=== PATIENT | male | born 1960 | race Caucasian/White ===

== ENCOUNTER 2018-01-08 09:35 | Emergency (ER) | payer MEDICARE, BC ==
[~2018-01-08] VITALS: Ht 185.4 cm; Wt 127.0 kg
[2018-01-08 10:18] LABS: BASOPHILS ABSOLUTE AUTO 0.04 K/mm3 (0.00-0.23); BASOPHILS PERCENT AUTO 1 % (0-2); EOSINOPHILS ABSOLUTE AUTO 0.14 K/mm3 (0.00-0.68); EOSINOPHILS PERCENT AUTO 2 % (0-6); Hematocrit 42.5 % (37.0-53.0); Hemoglobin 14.3 g/dL (13.5-17.5); IMMATURE GRAN ABSOLUTE AUTO 0.03 K/mm3 (0.00-0.10); IMMATURE GRAN PERCENT AUTO 0 % (0-1); LYMPHOCYTES ABSOLUTE AUTO 2.64 K/mm3 (0.84-5.20); LYMPHOCYTES PERCENT AUTO 37 % (21-46); MONOCYTES ABSOLUTE AUTO 1.02 K/mm3 (0.16-1.47); MONOCYTES PERCENT AUTO 14 % (4-13); Mean Corpuscular HGB 31.6 pg (26.0-34.0); Mean Corpuscular HGB Conc 33.6 g/dL (31.5-36.5); Mean Corpuscular Volume 94 fL (80-100); Mean Platelet Volume 9.6 fL (9.1-12.4); NEUTROPHILS ABSOLUTE AUTO 3.23 K/mm3 (1.96-9.15); NEUTROPHILS PERCENT AUTO 45 % (41-73); Platelet Count 224 K/mm3 (150-400); RDW Coefficient Variation 12.6 % (11.7-14.2); RDW Standard Deviation 43.8 fL (35.1-46.3); Red Blood Cell Count 4.53 M/mm3 (4.30-5.90)
[2018-01-08] MEDS ORDERED: NUEDEXTA 20-101 EACH PO (10:18)
[2018-01-08] MEDS ORDERED: PRIM250 PO (10:18)
[2018-01-08] MEDS ORDERED: Cialis5 MG PO (10:18)
[2018-01-08] MEDS ORDERED: DOCU100 PO (10:19)
[2018-01-08] MEDS ORDERED: PROP80ER PO (10:20)
[2018-01-08] MEDS ORDERED: TAMS.4ER PO (10:20)
[2018-01-08] MEDS ORDERED: Pristiq100 MG PO (10:21)
[2018-01-08] MEDS ORDERED: ATORVASTATIN CA20 MG PO (10:21)
[2018-01-08] MEDS ORDERED: NEXIUM 24HR20 M3 PO (10:22)
[2018-01-08] MEDS ORDERED: ALBU3IS INH (10:23)
[2018-01-08] MEDS ORDERED: Depakote500 MG PO (10:23)
[2018-01-08 10:39] LABS: Alanine Aminotransfer (ALT/SGP 53 U/L (12-78); Albumin, Blood 3.3 g/dL (3.4-5.0); Albumin/Globulin Ratio 0.9 (0.8-1.8); Alk Phos 74 U/L (50-136); Anion Gap 6 mmol/L (6-16); Aspartate Aminotrans (AST/SGOT 54 U/L (12-37); Bilirubin, Total 0.3 mg/dL (0.1-1.0); Blood Urea Nitrogen 14 mg/dL (8-24); Bun/Creatinine Ratio 15.5 (12.0-20.0); CO2, Blood 27 mmol/L (21-32); Calcium, Blood 8.7 mg/dL (8.5-10.1); Chloride, Blood 101 mmol/L (98-108); Globulin, Blood 3.5 g/dL (2.2-4.0); Glomerular Filtration Rate >60 (60-); Glucose, Blood 105 mg/dL (70-99); Potassium, Blood 4.4 mmol/L (3.5-5.5); Sodium, Blood 134 mmol/L (136-145); Total Protein, Blood 6.8 g/dL (6.4-8.2)
[2018-01-08] MEDS ORDERED: Lasix20 MG PO (11:31)
== END 2018-01-08 11:40 | disposition home or self-care (01) ==
LOC: ER 09:35
PROVIDERS: Emergency Medicine
DX: J44.1 Chronic obstructive pulmonary disease with (acute) exacerbation (principal); F17.200 Nicotine dependence, unspecified, uncomplicated; F10.10 Alcohol abuse, uncomplicated; R60.0 Localized edema; I50.9 Heart failure, unspecified; Z88.8 Allergy status to other drugs, medicaments and biological substances; Z88.5 Allergy status to narcotic agent; Z79.899 Other long term (current) drug therapy
CPT/HCPCS: 36415; 71046; 80053; 83880; 85025; 93005; 93010; 94640; 96374; 99284; J1940

== ENCOUNTER → 2018-02-06 | Outpatient (CLI) | payer MEDICARE, BC ==
[~2018-02-06] MED LIST: ALBU3IS INH; ATORVASTATIN CA20 MG PO; Cialis5 MG PO; DOCU100 PO; Depakote500 MG PO; Lasix20 MG PO; NEXIUM 24HR20 M3 PO; NUEDEXTA 20-101 EACH PO; PRIM250 PO; PROP80ER PO; Pristiq100 MG PO; TAMS.4ER PO
[2018-02-06 16:32] LABS: Bilirubin, Urine Neg (Neg); Blood, Urine Neg (Neg); Glucose Qualitative, Urine Neg (Neg); Ketones, Urine 1+ (Neg); Leukocyte Esterase, Urine 1+ (Neg); Nitrite, Urine Neg (Neg); Protein, Urine Neg (Neg); Urobilinogen, Urine 1+ (Normal)
[2018-02-06 16:43] LABS: Appearance, Urine Clear (Clear); Color, Urine Yellow (P-Yellow)
[2018-02-06 16:45] LABS: Bacteria Few /hpf; Red Blood Cells, Urine 0-2 /hpf (0-2); Squamous Epithelial Cells Not Seen /hpf (Few)
== END ==
LOC: LAB SHORT 16:21 → LAB 16:21
PROVIDERS: Internal Medicine
DX: R60.1 Generalized edema (principal); Z79.899 Other long term (current) drug therapy
CPT/HCPCS: 81001; 87086

== ENCOUNTER 2018-08-02 23:43 | Inpatient (IN) | payer MEDICARE, BC ==
[~2018-08-02] VITALS: Ht 185.4 cm; Wt 130.0 kg
[2018-08-02] MEDS ORDERED: ESOM20 PO (23:52)
[2018-08-02] MEDS ORDERED: DIVA500ER PO ×2 (23:53)
[2018-08-02] MEDS ORDERED: PRIM250 PO (23:54)
[2018-08-02] MEDS ORDERED: FURO40 PO (23:54)
[2018-08-02] MEDS ORDERED: POTCHL10ER PO (23:54)
[2018-08-02] MEDS ORDERED: INDERAL XL80 MG PO (23:55)
[2018-08-02] MEDS ORDERED: DESV50 PO (23:55)
[2018-08-02] MEDS ORDERED: Colace100 MG PO (23:56)
[2018-08-02] MEDS ORDERED: ALBU3IS INH (23:56)
[2018-08-03 00:32] LABS: BASOPHILS ABSOLUTE AUTO 0.05 K/mm3 (0.00-0.23); BASOPHILS PERCENT AUTO 1 % (0-2); EOSINOPHILS ABSOLUTE AUTO 0.01 K/mm3 (0.00-0.68); EOSINOPHILS PERCENT AUTO 0 % (0-6); Hematocrit 42.3 % (37.0-53.0); Hemoglobin 13.9 g/dL (13.5-17.5); IMMATURE GRAN ABSOLUTE AUTO 0.12 K/mm3 (0.00-0.10); IMMATURE GRAN PERCENT AUTO 1 % (0-1); LYMPHOCYTES ABSOLUTE AUTO 1.01 K/mm3 (0.84-5.20); LYMPHOCYTES PERCENT AUTO 9 % (21-46); MONOCYTES ABSOLUTE AUTO 1.19 K/mm3 (0.16-1.47); MONOCYTES PERCENT AUTO 11 % (4-13); Mean Corpuscular HGB 31.7 pg (26.0-34.0); Mean Corpuscular HGB Conc 32.9 g/dL (31.5-36.5); Mean Corpuscular Volume 96 fL (80-100); NEUTROPHILS ABSOLUTE AUTO 8.41 K/mm3 (1.96-9.15); NEUTROPHILS PERCENT AUTO 78 % (41-73); RDW Coefficient Variation 13.4 % (11.7-14.2); RDW Standard Deviation 47.7 fL (35.1-46.3); Red Blood Cell Count 4.39 M/mm3 (4.30-5.90); White Blood Cell Count 10.79 K/mm3 (4.00-11.30)
[2018-08-03 00:34] LABS: Mean Platelet Volume 9.9 fL (9.1-12.4); Platelet Count 201 K/mm3 (150-400)
[2018-08-03 00:45] LABS: Alanine Aminotransfer (ALT/SGP 73 U/L (12-78); Albumin, Blood 3.2 g/dL (3.4-5.0); Albumin/Globulin Ratio 0.8 (0.8-1.8); Alk Phos 78 U/L (50-136); Anion Gap 8 mmol/L (6-16); Aspartate Aminotrans (AST/SGOT 91 U/L (12-37); Bilirubin, Total 0.3 mg/dL (0.1-1.0); Blood Urea Nitrogen 11 mg/dL (8-24); Bun/Creatinine Ratio 11.2 (12.0-20.0); CO2, Blood 27 mmol/L (21-32); Calcium, Blood 8.2 mg/dL (8.5-10.1); Chloride, Blood 101 mmol/L (98-108); Creatinine, Blood 0.98 mg/dL (0.60-1.20); Globulin, Blood 3.8 g/dL (2.2-4.0); Glomerular Filtration Rate >60 (60-); Glucose, Blood 97 mg/dL (70-99); Potassium, Blood 4.6 mmol/L (3.5-5.5); Sodium, Blood 136 mmol/L (136-145)
[2018-08-03 00:46] LABS: Ethanol (Alcohol), Blood, Med <3 mg/dL
--- NOTE | 2018-08-03 03:00 | NUR ---
ASSUMED CARE- PT ARRIVES FROM THE ER VIA GURNEY AND AMBULATES WITH STANDBY ASSIST TO HOSPITAL BED. SPOUSE AT BEDSIDE. PT CURRENTLY ON 4L O2 VIA NASAL CANNULA WITH O2 SATS OF 94% WITH HARSH, HACKING, NON-PRODUCTIVE COUGH. LUNG SOUNDS WHEEZY AND DIMINISHED THROUGHOUT. PT CURRENTLY FEBRILE AND TACHYPNEIC. FLU SWAB COLLECTED AND SENT TO LAB. AWAITING MAGNESIUM INFUSION FROM PHARMACY. PT ORIENTED TO CALL LIGHT SYSTEM AND EDUCTED ON CALLING FOR ASSISTANCE. WILL CONTINUE WITH ADMISSION AND MONITORING. BED IN LOW POSITION, CALL LIGHT IN REACH.
--- NOTE | 2018-08-03 03:30 | NUR ---
PHYSICIAN CONTACTED- PT CONTINUES TO HAVE HACKING COUGH AND REQUESTING COUGH SYRUP. DR. SÁNCHEZ CONTACTED AND ORDERS RECEIVED FOR REGULAR DIET AND COUGH MEDICINE. WILL CONTINUE TO MONITOR.
[2018-08-03 03:40] LABS: Influenza A Positive (NEGATIVE); Influenza B Negative (NEGATIVE)
[2018-08-03] MEDS ORDERED: NUEDEXTA 20-101 EACH PO (03:49)
--- NOTE | 2018-08-03 06:00 | NUR ---
PHYSICIAN CONTACTED- FLU SWAB RESULTS ARE POSITIVE. PT CURRENTLY DRINKS 5-6 BEERS DAILY AND DOES NOT WANT TO DETOX WHILE IN THE HOSPITAL. DR SÁNCHEZ CONTACTED AND INFORMED OF LAB RESULT AND ALCOHOL USE- ORDERS RECEIVED FOR BEERS WITH MEALS AND TAMAFLU. WILL INPUT ORDERS AND CONTINUE MONITORING.
--- NOTE | 2018-08-03 07:32 | NUR ---
SHIFT SUMMARY- PT HAS REMAINED AOX4 THROUGHOUT SHIFT. PLEASANT AND COOPERATIVE WITH CARE. O2 SATS HAVE REMAINED >90% ON CURRENT O2 OF 2L VIA NASAL CANNULA. PT MEDICATED FOR FEVER AND NAUSEA ONCE THROUGHOUT SHIFT, BOTH DECREASED WITH ORDERED MEDICATIONS. PT RESTED THROUGHOUT REMAINDER OF SHIFT- APPEARS TO BE MUCH MORE COMFORTABLE THIS AM WITH DECREASED, LESS LABORED RESPIRATIONS. PT CONTINUES TO HAVE HARSH COUGH THAT IS NON-PRODUCTIVE. SPOUSE HAS REMAINED AT BEDSIDE. NO OTHER CHANGES FROM INITIAL ASSESSMENT. WILL CONTINUE TO MONITOR AND REPORT TO ONCOMING RN. BED IN LOW POSITION, CALL LIGHT IN REACH.
--- NOTE | 2018-08-03 11:43 | NUR ---
NOTE PT ALERT AND ORIENTED. CHEST WALL PAIN R/T DRY, NON PRODUCTIVE COUGH. ELEVATED TEMP. MEDICATED WITH TYLENOL. PLACED A COOL WET CLOTH ON HIS FOREHEAD. MEDICATED WITH COUGH SYRUP. PT IS STARTING TO COUGH UP SPUTUM. TANNISH IN COLOR. PT REFUSED ANYTHING STRONG FOR CHEST WALL PAIN. HE STATED IT ALL MAKES HIM "CRAZY". CONTINUE POT.
--- NOTE | 2018-08-04 05:55 | NUR ---
SHIFT SUMMARY- PT HAS REMAINED AOX4 THROUGHOUT SHIFT. VSS. PLEASANT AND COOPERATIVE WITH CARE. PT REMAINS ON BEDREST THROUGHOUT THE SHIFT, USING URINAL AT BEDSIDE NEEDED. O2 SATS HAVE REMAINED >90% ON 3L VIA NASAL CANNULA, PT CONTINUES TO HAVE TACHYPNEIC RESPIRATIONS IN THE 30S WHILE AWAKE THAT DECREASE TO 20-22 WHILE SLEEPING. PT MEDICATED MULTIPLE TIMES FOR COUGH AND PAIN THAT DECREASES WITH ORDERED MEDICATIONS. CONTINUES TO HAVE HARSH, HACKING COUGH THAT IS OCCASIONALLY PRODUCTIVE OF THICK, VALLADARES-YELLOW SPUTUM. PT RESTED WELL THROUGHOUT THE NIGHT AND MAINTAINED O2 SATURATIONS >90% WHILE SLEEPING ON 3L VIA NASAL CANNULA. NO OTHER CHANGES FROM INITIAL ASSESSMENT. WILL CONTINUE TO MONITOR AND REPORT TO ONCOMING RN. BED IN LOW POSITION, CALL LIGHT IN REACH.
--- NOTE | 2018-08-04 17:14 | NUR ---
SHIFT SUMMARY PT RESTING IN BED THROUGHOUT THE DAY. VSS. ALERT AND ORIENTED X3. LUNG SOUNDS CLEAR, DIMINISHED BASES. NSR RATE 90s ON TELE. PT CHANGED TO MEDICAL STATUS NO TELE. DENIES PAIN EXCEPT WHEN HE COUGHS. NON-PITTING EDEMA TO BLE. STOOD AT SIDE OF BED WHILE WAS IN THE ROOM, TOLERATED WELL, BUT CONTINUES TO HAVE SOB WITH ACTIVITY. WILL CONTINUE TO MONITOR.
--- NOTE | 2018-08-05 06:21 | NUR ---
SHIFT SUMMARY: PATIENT ABLE TO SLEEP MAJORITY OF SHIFT, STILL C/O ABDOMINAL PAIN WITH COUGH. PATIENT BED LOW AND LOCKED, CALL LIGHT WITHIN REACH AND USED APPROPRIATLY, VSS WITH NO OHTER ISSUES NOTED.
--- NOTE | 2018-08-05 09:43 | NUR ---
PCU DAYSHIFT ASSUMED CARE OF PT APPROX. 0700. PT A&OX4, ASSESSMENT COMPLETED. VITAL SIGNS STABLE. PT SOLITARIO HAS 6L OXYGEN VIA N.C. IN PLACE WITH OXYGEN SATS IN 90'S. PT ABLE TO HAVE A PORTION OF BREAKFAST THIS MORNING AND REPORTS TOLERATING WELL. PT SOLITARIO REPORTS THAT COUGH HAS BEEN TOLERABLE THIS MORNING AND REPORTS THAT PRN MEDICATION TO HELP WITH COUGH HELPED. PMD IN TO SEE PT THIS MORNING. BED IN LOW POSITION, CALL LIGHT IN REACH AND PT DENIES ANY NEEDS AT THIS TIME.
--- NOTE | 2018-08-05 10:40 | NUR ---
DISCHARGE RECIEVED D/C ORDERS FROM PMD. DISCHARGE INDUSTRIAL HYGIENE ENGINEER IN TO SEE PT. DISCHARGE PROCESS COMPLETED. PT ARRANGED FOR FAMILY TO COME GET PT TO GO HOME. MEDICATIONS CALLED INTO PHARMACY. DISCHARGE INFORMATION REVIEWED WITH PT AND FAMILY MEMBER. PT TO BE ESCORTED TO AUTOMOBILE BY PEER STAFF MEMBER. WILL CONTINUE TO MONITOR UNTIL DEPARTING UNIT.
[2018-08-05] MEDS ORDERED: OSEL75CA PO (10:43)
[2018-08-05] MEDS ORDERED: METO25ER PO (10:44)
--- NOTE | 2018-08-05 13:02 | NUR ---
HOME O2 EVAL. ORDERED AND COMPLETED. DISCHARGE INFORMATION GIVEN TO PT. PT HAS HOME OXYGEN TANK IN ROOM TO TAKE HOME WITH PT. OXYGEN PLACED UPON DISCHARGING UNIT. PT ESCORTED BY PEER STAFF MEMEBR TO AUTOMOBILE.
== END 2018-08-05 13:34 | disposition home or self-care (01) | DRG 190 ==
LOC: ER 23:43 → PCU 08-03 02:38
PROVIDERS: Emergency Medicine; ADMIT Internal Medicine
DX: J44.1 Chronic obstructive pulmonary disease with (acute) exacerbation (principal); J96.01 Acute respiratory failure with hypoxia; R65.10 Systemic inflammatory response syndrome (SIRS) of non-infectious origin without acute organ dysfunction; F31.9 Bipolar disorder, unspecified; I48.91 Unspecified atrial fibrillation; F43.10 Post-traumatic stress disorder, unspecified; F17.210 Nicotine dependence, cigarettes, uncomplicated; F10.20 Alcohol dependence, uncomplicated; Z87.820 Personal history of traumatic brain injury; J11.1 Influenza due to unidentified influenza virus with other respiratory manifestations; Z23 Encounter for immunization
CPT/HCPCS: 36415; 71045; 80053; 83605; 85025; 87040; 87804; 90686; 93005; 93010; 94640; 94760; 94761; 96365; 96366; 99285-25; G0008; G0480; J1650; J1956; J2405; J3475

== ENCOUNTER 2018-11-29 00:02 | Inpatient (IN) | payer MEDICARE, BC ==
[~2018-11-29] VITALS: Ht 185.4 cm; Wt 121.5 kg
[~2018-11-29 00:02] MED LIST changes: +Colace100 MG PO; +DESV50 PO; +DIVA500ER PO; +ESOM20 PO; +FURO40 PO; +INDERAL XL80 MG PO; +METO25ER PO; +OSEL75CA PO; +POTCHL10ER PO
[2018-11-29 00:48] LABS: BASOPHILS ABSOLUTE AUTO 0.06 K/mm3 (0.00-0.23); BASOPHILS PERCENT AUTO 0 % (0-2); EOSINOPHILS PERCENT AUTO 0 % (0-6); Hematocrit 41.6 % (37.0-53.0); Hemoglobin 13.7 g/dL (13.5-17.5); IMMATURE GRAN ABSOLUTE AUTO 0.27 K/mm3 (0.00-0.10); IMMATURE GRAN PERCENT AUTO 1 % (0-1); LYMPHOCYTES ABSOLUTE AUTO 2.53 K/mm3 (0.84-5.20); LYMPHOCYTES PERCENT AUTO 12 % (21-46); MONOCYTES ABSOLUTE AUTO 2.11 K/mm3 (0.16-1.47); MONOCYTES PERCENT AUTO 10 % (4-13); Mean Corpuscular HGB Conc 32.9 g/dL (31.5-36.5); Mean Corpuscular Volume 94 fL (80-100); Mean Platelet Volume 10.4 fL (9.1-12.4); NEUTROPHILS ABSOLUTE AUTO 17.09 K/mm3 (1.96-9.15); NEUTROPHILS PERCENT AUTO 77 % (41-73); Platelet Count 201 K/mm3 (150-400); RDW Standard Deviation 48.6 fL (35.1-46.3); Red Blood Cell Count 4.42 M/mm3 (4.30-5.90); White Blood Cell Count 22.06 K/mm3 (4.00-11.30)
[2018-11-29 01:05] LABS: Alanine Aminotransfer (ALT/SGP 23 U/L (12-78); Albumin, Blood 2.9 g/dL (3.4-5.0); Albumin/Globulin Ratio 0.8 (0.8-1.8); Alk Phos 58 U/L (50-136); Anion Gap 7 mmol/L (6-16); Aspartate Aminotrans (AST/SGOT 18 U/L (12-37); Bilirubin, Total 0.5 mg/dL (0.1-1.0); Blood Urea Nitrogen 15 mg/dL (8-24); CO2, Blood 26 mmol/L (21-32); Calcium, Blood 8.4 mg/dL (8.5-10.1); Chloride, Blood 103 mmol/L (98-108); Creatinine, Blood 1.07 mg/dL (0.60-1.20); Globulin, Blood 3.8 g/dL (2.2-4.0); Glomerular Filtration Rate >60 (60-); Glucose, Blood 101 mg/dL (70-99); Potassium, Blood 4.1 mmol/L (3.5-5.5); Sodium, Blood 136 mmol/L (136-145); Total Protein, Blood 6.7 g/dL (6.4-8.2)
[2018-11-29 01:26] LABS: Source, Urine Voided
[2018-11-29 01:28] LABS: Blood, Urine 1+ (Neg); Glucose Qualitative, Urine Neg (Neg); Ketones, Urine 2+ (Neg); Leukocyte Esterase, Urine 1+ (Neg); Nitrite, Urine Neg (Neg); Protein, Urine 2+ (Neg); Specific Gravity, Urine 1.015 (1.003-1.022); Urobilinogen, Urine 2+ (Normal)
[2018-11-29 01:29] LABS: Appearance, Urine Clear (Clear); Bilirubin, Urine 1+ (Neg); Color, Urine Amber (P-Yellow)
[2018-11-29 01:40] LABS: Amorphous Light ({null, 0-Heavy}); Bacteria Few /hpf; Mucus Mod ({null, 0-Heavy}); Squamous Epithelial Cells Rare /hpf (Few)
[2018-11-29] MEDS ORDERED: Senna8.6 MG (04:15)
[2018-11-29] MEDS ORDERED: ATOR20 PO (04:24)
[2018-11-29] MEDS ORDERED: PROP80ER PO (04:25)
[2018-11-29] MEDS ORDERED: Vitamin D2000 UNIT PO (04:25)
[2018-11-29] MEDS ORDERED: ASPI81CH PO (04:25)
[2018-11-29 06:27] LABS: Adenovirus Not Detected (NOT DETECT); Bordetella pertussis Not Detected (NOT DETECT); Chlamydophila pneumoniae Not Detected (NOT DETECT); Coronavirus 229E Not Detected (NOT DETECT); Coronavirus HKU1 Not Detected (NOT DETECT); Coronavirus NL63 Not Detected (NOT DETECT); Coronavirus OC43 Not Detected (NOT DETECT); Human Metapneumovirus Not Detected (NOT DETECT); Human Rhinovirus/Enterovirus Not Detected (NOT DETECT); Influenza A Not Detected (NOT DETECT); Influenza A/2009-H1 Not Detected (NOT DETECT); Influenza A/H1 Not Detected (NOT DETECT); Influenza A/H3 Not Detected (NOT DETECT); Influenza B Not Detected (NOT DETECT); Mycoplasma pneumoniae Not Detected (NOT DETECT); Parainfluenza Virus 1 Not Detected (NOT DETECT); Parainfluenza Virus 2 Not Detected (NOT DETECT); Parainfluenza Virus 3 Not Detected (NOT DETECT); Parainfluenza Virus 4 Not Detected (NOT DETECT); Respiratory Syncytial Virus Not Detected (NOT DETECT)
--- NOTE | 2018-11-29 06:49 | NUR ---
PCU ADMIT / SHIFT SUMMARY PT BROUGHT TO PCU RM 05 FROM THE ER BY ROMAN @ APPROX 0400 TODAY. PT ACCOMPANIED BY SPOUSE. PT A&O X4. ABLE TO STAND AND AMBULATE TO PCU BED. PT TREMULOUS UPON ARRIVAL TO UNIT. PT'S STATES THIS TO HAVE JUST SET IN AFTER LEAVING ER. PT TEMP WNL UPON ARRIVAL. TEMP ELEVATED @ 102.4 W/ ORDERS FOR TYLENOL OBTAINED THIS AM. BLANKETS REMOVED EXCEPT FOR SHEET, COOL WASH CLOTH PLACED ON PT WELL FAN. TEMP TO BE REASSESSED. LUNG SOUNDS COARSE T/O. SPO2 > 92% ON 2L NC. PT'S REPORTS PT TO GET THRUSH W/ ANTIBIOTIC USE. NO SIGNS OF THRUSH AT THIS TIME. WILL CONTINUE TO MONITOR AND PROVIDE CARE UNTIL REPORT OFF TO DAY SHIFT RN.
[2018-11-29 08:48] LABS: Hematocrit 37.9 % (37.0-53.0); Hemoglobin 12.4 g/dL (13.5-17.5); Mean Corpuscular HGB 30.4 pg (26.0-34.0); Mean Corpuscular HGB Conc 32.7 g/dL (31.5-36.5); Mean Corpuscular Volume 93 fL (80-100); Mean Platelet Volume 10.5 fL (9.1-12.4); Platelet Count 186 K/mm3 (150-400); RDW Standard Deviation 47.6 fL (35.1-46.3); Red Blood Cell Count 4.08 M/mm3 (4.30-5.90); White Blood Cell Count 20.39 K/mm3 (4.00-11.30)
[2018-11-29 08:55] LABS: Alanine Aminotransfer (ALT/SGP 20 U/L (12-78); Albumin, Blood 2.5 g/dL (3.4-5.0); Albumin/Globulin Ratio 0.7 (0.8-1.8); Alk Phos 57 U/L (50-136); Anion Gap 6 mmol/L (6-16); Aspartate Aminotrans (AST/SGOT 22 U/L (12-37); Bilirubin, Total 0.7 mg/dL (0.1-1.0); Blood Urea Nitrogen 17 mg/dL (8-24); Bun/Creatinine Ratio 16.7 (12.0-20.0); CO2, Blood 24 mmol/L (21-32); Calcium, Blood 8.1 mg/dL (8.5-10.1); Chloride, Blood 104 mmol/L (98-108); Creatinine, Blood 1.02 mg/dL (0.60-1.20); Globulin, Blood 3.6 g/dL (2.2-4.0); Glomerular Filtration Rate >60 (60-); Glucose, Blood 96 mg/dL (70-99); Potassium, Blood 3.9 mmol/L (3.5-5.5); Sodium, Blood 134 mmol/L (136-145); Total Protein, Blood 6.1 g/dL (6.4-8.2)
--- NOTE | 2018-11-29 11:12 | NUR ---
AM NOTE PT RESTING QUIETLY. SNORING HEARD IN THE HALLWAY. AWAKENS EASILY. VSS. HAS GONE HOME TO REST. SHE WILL BRING BACK PT NON-FORMALARY MEDICATIONS. PT EXPRESSED THAT HIS MOOD IS GOOD. PREDNISONE MAKES HIM FEEL VERY DARK, AND ANGRY. HE IS TOLERATING THE SOLUMEDROL WELL SO FAR. HE DENIES A MOOD CHANGE OR DARK THOUGHTS. SAT STABLE. ORDERED A DIET. ATE WELL. DENIES SOB OR DISCOMFORT. CONTINUE POT.
--- NOTE | 2018-11-29 17:20 | NUR ---
SHIFT SUMMARY PATIENT TO THE FLOOR FROM PCU IN 1600 HOUR. PATIENT IS PLEASANT, ORIENTED TO THE ROOM. INDEPENDENT TO THE BATHROOM. 1L O2 FOR EXERTION. PATIENT CALLS APPROPRIATELY. 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 PATIENT ALSO HAS BIPOLAR DISORDER. NO ACUTE CONCERNS AT THIS TIME.
--- NOTE | 2018-11-30 04:43 | NUR ---
SHIFT SUMMARY PT HAD MOSTLY UNEVENTFUL NIGHT. BROUGHT IN ONE OF PT'S HOME MEDICATIONS NOT REALIZING THERE WERE TWO HOME MEDICATIONS THAT NEEDED TO BE BROUGHT IN. REPORTS THAT THE MEDICATION THAT WAS NOT BROUGHT IN IS FOR PT'S BIPOLAR DISORDER AND THAT HE SHOULD NOT GO MORE THAN A DAY WITHOUT IT. SHE STATED THAT SHE WILL BRING IT IN TODAY. THE ONE HOME MEDICATION THAT WAS BROUGHT IN WAS SENT TO PHARMACY, LABELED AND PLACED IN PT'S LOCKED DRAWER. PT PLEASANT AND COOPERATIVE, NO AGGRESSIVE BEHAVIOUR NOTED. PT SLEPT WELL, NO COMPLAINTS OF PAIN. BLOOD CULTURE DID COME BACK POSITIVE FOR GRAM POSITIVE COCCI IN CLUSTERS, SPOKE WITH PHARMACIST WHO STATED THAT PT HAD ALREADY RECIEVED A DOSE OF VANCO AND IS CURRENTLY RECIEVING LEVAQUIN AND THIS SHOULD BE ADEQUATE COVERAGE FOR THE TIME BEING. PT AFEBRILE. ALERT AND ORIENTED. VITAL SIGNS STABLE. WILL CONTINUE TO MONITOR AND REPORT TO DAY RN.
[2018-11-30 05:32] LABS: BASOPHILS ABSOLUTE AUTO 0.02 K/mm3 (0.00-0.23); BASOPHILS PERCENT AUTO 0 % (0-2); EOSINOPHILS PERCENT AUTO 0 % (0-6); Hematocrit 36.8 % (37.0-53.0); Hemoglobin 11.9 g/dL (13.5-17.5); IMMATURE GRAN ABSOLUTE AUTO 0.46 K/mm3 (0.00-0.10); IMMATURE GRAN PERCENT AUTO 2 % (0-1); LYMPHOCYTES ABSOLUTE AUTO 1.88 K/mm3 (0.84-5.20); LYMPHOCYTES PERCENT AUTO 8 % (21-46); MONOCYTES ABSOLUTE AUTO 1.18 K/mm3 (0.16-1.47); MONOCYTES PERCENT AUTO 5 % (4-13); Mean Corpuscular HGB 30.4 pg (26.0-34.0); Mean Corpuscular HGB Conc 32.3 g/dL (31.5-36.5); Mean Corpuscular Volume 94 fL (80-100); Mean Platelet Volume 10.7 fL (9.1-12.4); NEUTROPHILS ABSOLUTE AUTO 21.53 K/mm3 (1.96-9.15); NEUTROPHILS PERCENT AUTO 86 % (41-73); Platelet Count 190 K/mm3 (150-400); RDW Coefficient Variation 13.4 % (11.7-14.2); RDW Standard Deviation 46.4 fL (35.1-46.3); Red Blood Cell Count 3.91 M/mm3 (4.30-5.90); White Blood Cell Count 25.07 K/mm3 (4.00-11.30)
[2018-11-30 05:53] LABS: Anion Gap 6 mmol/L (6-16); Blood Urea Nitrogen 20 mg/dL (8-24); Bun/Creatinine Ratio 26.2 (12.0-20.0); CO2, Blood 24 mmol/L (21-32); Calcium, Blood 8.9 mg/dL (8.5-10.1); Chloride, Blood 106 mmol/L (98-108); Creatinine, Blood 0.76 mg/dL (0.60-1.20); Glomerular Filtration Rate >60 (60-); Glucose, Blood 134 mg/dL (70-99); Sodium, Blood 136 mmol/L (136-145)
--- NOTE | 2018-11-30 17:25 | NUR ---
ALERT. ORIENTED. COOPERATIVE. UPPER EXTREMITY TREMORS. IV PATENT. NO AGGRESSIVE BEHAVIORS NOTED. HAS NOT BROUGHT IN OTHER MED THAT HE NORMALLY TAKES YET. DENIES PAIN. ON OXYGEN. UNLABORED RESPIRATIONS. GIVEN MEDS FOR CONSTIPATION. WILL ALSO GIVE WARMED PRUNE JUICE, W/MELTED BUTTER AND APPLE JUICE. BED IN LOW POSITION. USES CALL LIGHT APPROPRIATELY. WCTM.
--- NOTE | 2018-11-30 17:47 | NUR ---
Spiritual Care inital visit: Bren was welcoming of visit and open to prayer/spiritual support. He quit smoking three days ago, and is really hoping he can abstain. This hospitalization seems to have been a wake-up call. 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 He allowed me to pray for him. We had an easy rapport and I will remain available.
--- NOTE | 2018-12-01 04:51 | NUR ---
SHIFT SUMMARY PT ADMITTED FOR SEPSIS SECONDARY TO LEFT LOWER LOBE PNEUMONIA. FULL CODE. REGULAR DIET. LOVENOX FOR DVT PROPHYLAXIS. NEW 20 G IV TO L FA. INDEPENDENT WITH TRANSFERS. TAKES MEDICATIONS WHOLE. HISTORY OF BIPOALR, TBI AND ETOH. 1L O2 VIA NC. PT NOTED TO HAVE SOME UPPER EXTREMETY TREMORS. PER REPORT, PT HAS A HX OF AGGRESSIVE BEHAVIOR WITH THE USE OF STEROIDS. HOWEVER, NO AGGRESSITVE BEHAVIOR OBSERVED OR REPORTED SINCE ADMISSION SO FAR. THE PT HAS APPEARED TO SLEEP COMFORTABLY MOST OF THE NIGHT WITH NO APPARENT SIGNS OF ACUTE DISTRESS. ABLE TO MAKE NEEDS KNOWN AND CALL LIGHT IN REACH.
[2018-12-01 05:21] LABS: BASOPHILS ABSOLUTE AUTO 0.03 K/mm3 (0.00-0.23); BASOPHILS PERCENT AUTO 0 % (0-2); EOSINOPHILS PERCENT AUTO 0 % (0-6); Hematocrit 36.5 % (37.0-53.0); Hemoglobin 11.9 g/dL (13.5-17.5); IMMATURE GRAN ABSOLUTE AUTO 0.54 K/mm3 (0.00-0.10); IMMATURE GRAN PERCENT AUTO 2 % (0-1); LYMPHOCYTES ABSOLUTE AUTO 1.55 K/mm3 (0.84-5.20); LYMPHOCYTES PERCENT AUTO 7 % (21-46); MONOCYTES PERCENT AUTO 3 % (4-13); Mean Corpuscular HGB 30.2 pg (26.0-34.0); Mean Corpuscular HGB Conc 32.6 g/dL (31.5-36.5); Mean Corpuscular Volume 93 fL (80-100); Mean Platelet Volume 10.7 fL (9.1-12.4); NEUTROPHILS ABSOLUTE AUTO 19.64 K/mm3 (1.96-9.15); NEUTROPHILS PERCENT AUTO 88 % (41-73); Platelet Count 224 K/mm3 (150-400); RDW Coefficient Variation 13.6 % (11.7-14.2); RDW Standard Deviation 46.8 fL (35.1-46.3); Red Blood Cell Count 3.94 M/mm3 (4.30-5.90); White Blood Cell Count 22.46 K/mm3 (4.00-11.30)
[2018-12-01 05:56] LABS: Anion Gap 6 mmol/L (6-16); Blood Urea Nitrogen 27 mg/dL (8-24); CO2, Blood 26 mmol/L (21-32); Calcium, Blood 8.9 mg/dL (8.5-10.1); Chloride, Blood 107 mmol/L (98-108); Creatinine, Blood 0.79 mg/dL (0.60-1.20); Glomerular Filtration Rate >60 (60-); Glucose, Blood 126 mg/dL (70-99); Potassium, Blood 4.1 mmol/L (3.5-5.5); Sodium, Blood 139 mmol/L (136-145)
--- NOTE | 2018-12-01 17:31 | NUR ---
ALERT. ORIENTED. UPPER EXT TREMORS WITH HX OF. AMBULATORY WITH STEADY GAIT IN ROOM. ABLE TO MAKE NEEDS KNOWN. UNLABORED RESPIRATIONS. BED IN LOW POSITION. NO HINTS OF ANY AGGRESSION HAS HX OF AGGRESSION WHILE ON STEROIDS. PLEASANT. COOPERATIVE. WCTM.
--- NOTE | 2018-12-02 03:22 | NUR ---
SHIFT SUMMARY PATIENT HAD NO ACUTE CHANGES OBSERVED THIS SHIFT. AXO X4 AND INDEPENDENT IN THE ROOM. PIV REMAINS INTACT. ON 1L O2 NC. RT IN FOR BREATHING TX. DENIES PAIN AND N/V. VSS/AFEBRILE. IV SOLU-MEDROL PER EMAR. ORAL MEDICATION NUEDEXTA 20 MG-10MG (HOME MEDICATION) IN PATIENT DRAW. COOPERATIVE WITH CARE. CALL LIGHT IN REACH. BED IN LOWEST POSITION. WILL CONTINUE TO MONITOR UNTIL DAY SHIFT NURSE ASSUMES CARE.
[2018-12-02 04:55] LABS: BASOPHILS ABSOLUTE AUTO 0.06 K/mm3 (0.00-0.23); BASOPHILS PERCENT AUTO 0 % (0-2); EOSINOPHILS PERCENT AUTO 0 % (0-6); Hematocrit 36.8 % (37.0-53.0); Hemoglobin 11.9 g/dL (13.5-17.5); IMMATURE GRAN ABSOLUTE AUTO 0.32 K/mm3 (0.00-0.10); IMMATURE GRAN PERCENT AUTO 2 % (0-1); LYMPHOCYTES ABSOLUTE AUTO 1.77 K/mm3 (0.84-5.20); LYMPHOCYTES PERCENT AUTO 10 % (21-46); MONOCYTES ABSOLUTE AUTO 0.49 K/mm3 (0.16-1.47); MONOCYTES PERCENT AUTO 3 % (4-13); Mean Corpuscular HGB 30.1 pg (26.0-34.0); Mean Corpuscular HGB Conc 32.3 g/dL (31.5-36.5); Mean Corpuscular Volume 93 fL (80-100); Mean Platelet Volume 10.3 fL (9.1-12.4); NEUTROPHILS ABSOLUTE AUTO 15.15 K/mm3 (1.96-9.15); NEUTROPHILS PERCENT AUTO 85 % (41-73); Platelet Count 237 K/mm3 (150-400); RDW Coefficient Variation 13.8 % (11.7-14.2); RDW Standard Deviation 47.5 fL (35.1-46.3); Red Blood Cell Count 3.95 M/mm3 (4.30-5.90); White Blood Cell Count 17.79 K/mm3 (4.00-11.30)
[2018-12-02 05:10] LABS: Anion Gap 7 mmol/L (6-16); Blood Urea Nitrogen 24 mg/dL (8-24); Bun/Creatinine Ratio 31.6 (12.0-20.0); CO2, Blood 27 mmol/L (21-32); Calcium, Blood 8.1 mg/dL (8.5-10.1); Chloride, Blood 107 mmol/L (98-108); Creatinine, Blood 0.76 mg/dL (0.60-1.20); Glomerular Filtration Rate >60 (60-); Glucose, Blood 135 mg/dL (70-99); Sodium, Blood 141 mmol/L (136-145)
[2018-12-02] MEDS ORDERED: ACET325 PO (15:53)
[2018-12-02] MEDS ORDERED: CEFP200 PO (15:54)
[2018-12-02] MEDS ORDERED: ALBU90OI6 INH (15:54)
[2018-12-02] MEDS ORDERED: LEVO750 PO (15:55)
[2018-12-02] MEDS ORDERED: PRED10 PO (15:56)
[2018-12-02] MEDS ORDERED: NICO21TP TOP (15:57)
[2018-12-02] MEDS ORDERED: Florastor250 MG PO (15:57)
[2018-12-02] MEDS ORDERED: ONDA4ODT MM (15:57)
--- NOTE | 2018-12-02 18:00 | NUR ---
DISCHARGE INSTRUCTIONS COMPLETED AND DISCUSSED WITH PT EXPRESSING UNDERSTANDING. SCRIPTS FAXED TO [facility]. HERE TO PICK PT UP. TO [facility] VIA W/C.
== END 2018-12-02 17:40 | disposition home or self-care (01) | DRG 871 ==
LOC: ER 00:02 → PCU 02:51 → MEDS 16:21
PROVIDERS: Emergency Medicine; Internal Medicine; ADMIT Internal Medicine
DX: A41.9 Sepsis, unspecified organism (principal); J96.01 Acute respiratory failure with hypoxia; J18.1 Lobar pneumonia, unspecified organism; J96.21 Acute and chronic respiratory failure with hypoxia; G93.41 Metabolic encephalopathy; J44.1 Chronic obstructive pulmonary disease with (acute) exacerbation; J44.0 Chronic obstructive pulmonary disease with (acute) lower respiratory infection; F17.210 Nicotine dependence, cigarettes, uncomplicated; I48.0 Paroxysmal atrial fibrillation; F31.9 Bipolar disorder, unspecified; Z99.81 Dependence on supplemental oxygen; Z87.820 Personal history of traumatic brain injury; E86.0 Dehydration; F10.20 Alcohol dependence, uncomplicated; R65.20 Severe sepsis without septic shock
CPT/HCPCS: 36415; 71046; 80048; 80053; 81001; 81240; 83605; 84145; 85025; 85027; 87040; 87086; 87486; 87581; 87633; 87798; 93005; 93010; 94640; 94664; 94760; 94761; 96365; 96367; 98960; 99285-25; 99407; J0692; J0696; J1650; J1956; J2930; J3370; J7030; J7120

== ENCOUNTER 2019-03-04 11:50 | Day surgery (SDC) | payer MEDICARE, BC ==
[~2019-03-04] VITALS: Ht 182.9 cm; Wt 127.8 kg
[~2019-03-04 11:50] MED LIST changes: +ACET325 PO; +ALBU90OI6 INH; +ASPI81CH PO; +ATOR20 PO; +CEFP200 PO; +Florastor250 MG PO; +LEVO750 PO; +NICO21TP TOP; +ONDA4ODT MM; +PRED10 PO; +Senna8.6 MG; +Vitamin D2000 UNIT PO
[2019-03-04] MEDS ORDERED: LEVSOD25 (13:15)
[2019-03-04] MEDS ORDERED: DOC250 PO (13:16)
== END 2019-03-04 15:21 | disposition home or self-care (01) ==
LOC: ORSCSDS 11:50
PROVIDERS: Student in an Organized Health Care Education/Training Program
PROC: 0DB68ZX Excision of Stomach, Via Natural or Artificial Opening Endoscopic, Diagnostic (ICD-10-PCS; principal; 2019-03-04 10:00)
PROC: 0DB98ZX Excision of Duodenum, Via Natural or Artificial Opening Endoscopic, Diagnostic (ICD-10-PCS; principal; 2019-03-04 10:00)
PROC: 0DB58ZX Excision of Esophagus, Via Natural or Artificial Opening Endoscopic, Diagnostic (ICD-10-PCS; principal; 2019-03-04 10:00)
DX: R13.10 Dysphagia, unspecified (principal); K21.9 Gastro-esophageal reflux disease without esophagitis; J44.9 Chronic obstructive pulmonary disease, unspecified; K44.9 Diaphragmatic hernia without obstruction or gangrene; K29.80 Duodenitis without bleeding; K29.70 Gastritis, unspecified, without bleeding; Z99.81 Dependence on supplemental oxygen; F17.210 Nicotine dependence, cigarettes, uncomplicated; Z68.38 Body mass index [BMI] 38.0-38.9, adult; E66.01 Morbid (severe) obesity due to excess calories; Z79.82 Long term (current) use of aspirin; Z79.899 Other long term (current) drug therapy
CPT/HCPCS: 88305; 88342; J2704; J7120

== ENCOUNTER → 2019-05-26 | Outpatient (CLI) | payer MEDICARE, BC ==
[~2019-05-26] MED LIST changes: +DOC250 PO; +LEVSOD25
== END | disposition home or self-care (01) ==
LOC: LAB SHORT 08:25 → PLD 08:25
DX: D48.5 Neoplasm of uncertain behavior of skin (principal); L82.1 Other seborrheic keratosis
CPT/HCPCS: 88305

== ENCOUNTER 2020-09-26 18:27 | Emergency (ER) | payer MEDICARE, BC ==
[~2020-09-26] VITALS: Ht 185.4 cm; Wt 127.0 kg
[2020-09-26 19:01] LABS: BASOPHILS ABSOLUTE AUTO 0.05 K/mm3 (0.00-0.23); BASOPHILS PERCENT AUTO 0 % (0-2); EOSINOPHILS ABSOLUTE AUTO 0.11 K/mm3 (0.00-0.68); EOSINOPHILS PERCENT AUTO 1 % (0-6); Hematocrit 45.6 % (37.0-53.0); Hemoglobin 14.8 g/dL (13.5-17.5); IMMATURE GRAN ABSOLUTE AUTO 0.07 K/mm3 (0.00-0.10); IMMATURE GRAN PERCENT AUTO 1 % (0-1); LYMPHOCYTES ABSOLUTE AUTO 3.52 K/mm3 (0.84-5.20); LYMPHOCYTES PERCENT AUTO 23 % (21-46); MONOCYTES ABSOLUTE AUTO 1.66 K/mm3 (0.16-1.47); MONOCYTES PERCENT AUTO 11 % (4-13); Mean Corpuscular HGB Conc 32.5 g/dL (31.5-36.5); Mean Corpuscular Volume 93 fL (80-100); Mean Platelet Volume 10.3 fL (9.1-12.4); NEUTROPHILS ABSOLUTE AUTO 9.98 K/mm3 (1.96-9.15); NEUTROPHILS PERCENT AUTO 65 % (41-73); Platelet Count 244 K/mm3 (150-400); RDW Coefficient Variation 13.7 % (11.7-14.2); RDW Standard Deviation 47.1 fL (35.1-46.3); Red Blood Cell Count 4.93 M/mm3 (4.30-5.90); White Blood Cell Count 15.39 K/mm3 (4.00-11.30)
[2020-09-26 19:28] LABS: Troponin I <0.015 ng/mL (0.000-0.040)
[2020-09-26 19:29] LABS: Alanine Aminotransfer (ALT/SGP 26 U/L (12-78); Albumin/Globulin Ratio 0.7 (0.8-1.8); Alk Phos 88 U/L (50-136); Anion Gap 5 mmol/L (6-16); Aspartate Aminotrans (AST/SGOT 22 U/L (12-37); Bilirubin, Total 0.4 mg/dL (0.1-1.0); Blood Urea Nitrogen 16 mg/dL (8-24); Bun/Creatinine Ratio 17.9 (12.0-20.0); CO2, Blood 27 mmol/L (21-32); Calcium, Blood 9.1 mg/dL (8.5-10.1); Chloride, Blood 105 mmol/L (98-108); Creatinine, Blood 0.89 mg/dL (0.60-1.20); Globulin, Blood 4.6 g/dL (2.2-4.0); Glomerular Filtration Rate >60 (60-); Glucose, Blood 102 mg/dL (70-99); Potassium, Blood 4.3 mmol/L (3.5-5.5); Sodium, Blood 137 mmol/L (136-145); Total Protein, Blood 7.6 g/dL (6.4-8.2)
== END 2020-09-27 00:41 | disposition left against medical advice (07) ==
LOC: ER 18:27
PROVIDERS: Physician Assistant
DX: R07.9 Chest pain, unspecified (principal); Z20.822 Contact with and (suspected) exposure to COVID-19; Z53.21 Procedure and treatment not carried out due to patient leaving prior to being seen by health care provider
CPT/HCPCS: 36415; 80053; 84484; 85025; 93005; 93010; 99283-25

== ENCOUNTER → 2021-10-02 | Outpatient (CLI) | payer MEDICARE, BC | END | disposition home or self-care (01) | LOC: LAB SHORT 07:29 | DX: D22.5 Melanocytic nevi of trunk (principal) | CPT/HCPCS: 88305 ==

== ENCOUNTER 2022-04-27 09:40 | Inpatient (IN) | payer MEDICARE, BC ==
[~2022-04-27] VITALS: Ht 185.4 cm; Wt 132.5 kg
[~2022-04-27 09:40] MED LIST changes: +LEVSOD100 PO; -LEVSOD25; +Vitamin D1000 UNI1 PO; -Vitamin D2000 UNIT PO
[2022-04-27 10:56] LABS: BASOPHILS ABSOLUTE AUTO 0.04 K/mm3 (0.00-0.23); BASOPHILS PERCENT AUTO 0 % (0-2); EOSINOPHILS ABSOLUTE AUTO 0.02 K/mm3 (0.00-0.68); EOSINOPHILS PERCENT AUTO 0 % (0-6); Hematocrit 41.9 % (37.0-53.0); Hemoglobin 13.4 g/dL (13.5-17.5); IMMATURE GRAN ABSOLUTE AUTO 0.09 K/mm3 (0.00-0.10); IMMATURE GRAN PERCENT AUTO 1 % (0-1); LYMPHOCYTES ABSOLUTE AUTO 1.73 K/mm3 (0.84-5.20); LYMPHOCYTES PERCENT AUTO 19 % (21-46); MONOCYTES ABSOLUTE AUTO 2.21 K/mm3 (0.16-1.47); MONOCYTES PERCENT AUTO 24 % (4-13); Mean Corpuscular HGB 29.1 pg (26.0-34.0); Mean Corpuscular Volume 91 fL (80-100); Mean Platelet Volume 10.9 fL (9.1-12.4); NEUTROPHILS ABSOLUTE AUTO 5.17 K/mm3 (1.96-9.15); NEUTROPHILS PERCENT AUTO 56 % (41-73); Platelet Count 180 K/mm3 (150-400); RDW Standard Deviation 50.4 fL (35.1-46.3); White Blood Cell Count 9.26 K/mm3 (4.00-11.30)
[2022-04-27 11:16] LABS: Albumin, Blood 3.1 g/dL (3.4-5.0); Albumin/Globulin Ratio 0.8 (0.8-1.8); Bilirubin, Total 0.3 mg/dL (0.1-1.0); Bun/Creatinine Ratio 14.4 (12.0-20.0); Calcium, Blood 8.2 mg/dL (8.5-10.1); Creatinine, Blood 0.76 mg/dL (0.60-1.20); Globulin, Blood 3.9 g/dL (2.2-4.0); Potassium, Blood 4.1 mmol/L (3.5-5.5)
[2022-04-27] MEDS ORDERED: OMEP20ER PO (11:22)
[2022-04-27] MEDS ORDERED: DESV50 PO (11:22)
[2022-04-27] MEDS ORDERED: ATOR40TA PO (11:23)
[2022-04-27] MEDS ORDERED: DIVA500EC PO (11:23)
[2022-04-27] MEDS ORDERED: PROP160ER PO (11:23)
[2022-04-27] MEDS ORDERED: SENN187 PO (11:23)
[2022-04-27] MEDS ORDERED: FOLI1 PO (11:24)
--- NOTE | 2022-04-27 20:16 | NUR ---
1705 RECEIVED PT TO RM 354 FROM ER. PT ADMITTED FOR COPD EXAC WITH RESP FAILURE. PT ALSO COVID + OF YESTERDAY, PER REPORT. PT TO ER WITH SOB, COUGH, AND CONFUSION. PT ALSO REPORTED BEING A SMOKER. PLACED ON 4L O2 IN ER. TYLENOL GIVEN FOR FEVER; WNL'S UPON ADMIT TO . HX OF A-FIB, NOT ON ANTICOAG. HX OF BIPOLAR; HOME MED LIST UPDATED. PT SOB AND COUGHING WHEN FIRST ADMITTED, REPORTING THAT HE FELT TERRIBLE. PT LATER REPORTED FEELING BETTER AND ABLE TO SIT UP AND EAT DINNER. SOLUMEDROL GIVEN AFTER IV ACCESS OBTAINED. SR ON TELE; PER PCU MX. PLEASANT AND CO-OP. USING URINAL AT BS. DENIED FURTHER NEEDS. CALL LT IN REACH. REPORT GIVEN TO ONCOMING RN.
[2022-04-28 02:56] LABS: PCO2 Arterial 65.4 mmHg (35-45); PO2 Arterial 60.6 mmHg (80-100); pH Blood Arterial 7.31 (7.35-7.45)
[2022-04-28 04:52] LABS: BASOPHILS ABSOLUTE AUTO 0.03 K/mm3 (0.00-0.23); BASOPHILS PERCENT AUTO 0 % (0-2); EOSINOPHILS PERCENT AUTO 0 % (0-6); Hemoglobin 13.7 g/dL (13.5-17.5); IMMATURE GRAN ABSOLUTE AUTO 0.05 K/mm3 (0.00-0.10); IMMATURE GRAN PERCENT AUTO 1 % (0-1); LYMPHOCYTES ABSOLUTE AUTO 2.16 K/mm3 (0.84-5.20); LYMPHOCYTES PERCENT AUTO 23 % (21-46); MONOCYTES ABSOLUTE AUTO 0.51 K/mm3 (0.16-1.47); MONOCYTES PERCENT AUTO 5 % (4-13); Mean Corpuscular HGB 29.2 pg (26.0-34.0); Mean Corpuscular HGB Conc 31.9 g/dL (31.5-36.5); Mean Corpuscular Volume 92 fL (80-100); Mean Platelet Volume 10.9 fL (9.1-12.4); NEUTROPHILS PERCENT AUTO 71 % (41-73); Platelet Count 187 K/mm3 (150-400); RDW Coefficient Variation 14.6 % (11.7-14.2); RDW Standard Deviation 49.4 fL (35.1-46.3); Red Blood Cell Count 4.69 M/mm3 (4.30-5.90); White Blood Cell Count 9.45 K/mm3 (4.00-11.30)
[2022-04-28 05:38] LABS: Albumin, Blood 2.9 g/dL (3.4-5.0); Albumin/Globulin Ratio 0.7 (0.8-1.8); Bilirubin, Total 0.5 mg/dL (0.1-1.0); Bun/Creatinine Ratio 19.2 (12.0-20.0); Calcium, Blood 9.1 mg/dL (8.5-10.1); Creatinine, Blood 0.73 mg/dL (0.60-1.20); Potassium, Blood 4.7 mmol/L (3.5-5.5); Total Protein, Blood 6.9 g/dL (6.4-8.2)
--- NOTE | 2022-04-28 06:47 | NUR ---
NOC SHIFT SUMMARY PT ADMITTED WITH COPD EXACERBATION/COVID +. IV SOLUMEDROL PER OCT. BIPAP WHILE ASLEEP; 4L NC WHILE AWAKE. PRODUCTIVE COUGH WITH VALLADARES/WHITE SPUTUM PERIODICALLY OVERNIGHT. NO ISSUES NOTED.
--- NOTE | 2022-04-28 10:26 | NUR ---
pt sitting up in bed watching tv, a/ox3, pleasant and cooperative with care, follows commands well denies pain, states he slept ok, lungs are course with with exp wheezing, currently on 4liters 02 via n/c, resp even and unlabored, reports a productive cough, uses bipap at hs, hrr, tele in place running sr per monitor, see strip, 2+ edema noted to b/l le, ppp+1, cap refill <3sec, vs stable afebrile, iv site is clear and patent, bt x4, abd round soft nontender, voids via urinal, skin c/w/d, maew, up in room indep, has a freq productive cough, alexys, call light in reach.
--- NOTE | 2022-04-28 18:23 | NUR ---
pt has been able to ambulate to the bathroom with sba, hands tremor, gait steady, no acute changes this shift, call light in reach.
--- NOTE | 2022-04-29 01:59 | NUR ---
STOCK CRANE OPERATOR ALERTED RN OF 6 BEAT RUN V.TACH FOLLOWED BY 6 SETS TRIGEMINY. PT SHOWED NO S/S CARDIAC DISTRESS BUT WAS SOB AND WAS HAVING A COUGHING FIT WHEN NURSE ROUNDED. PT ASSISTED TO REPOSITION AND COUGHING RESOLVED UPON LYING MORE UPRIGHT. CPAP WAS REPLACED AND PT IS NOW S.OLIVIA AT 50'S BPM. MADE AWARE W/MAG LEVEL ADDED TO RENAL PANEL THIS AM. PT REMINDED TO CALL FOR S/S RESP OR CARDIAC DISTRESS AND CONT BIOX REMAINS INTACT.
--- NOTE | 2022-04-29 03:20 | NUR ---
SUMMARY: PT A/OX4, SPECIFIES NEEDS AND IS PLEASANT AND COOPERATIVE W/CARE. HE USES URINAL AD VICKY, REPOSITIONS SELF IN BED AND IS UP W/SBA. PT REMAINS ON 4L O2 VIA NC AND WAS TITRATED UP TO 5L BLEED VIA CPAP TO MAINTAIN SPO2>90% WHILE SLEEPING. LS ARE COARSE W/OCC FORCED EXP WHEEZES HEARD DURING PERIODS OF SOB. PT GETS DYSPNEIC AND LABORED W/EXERTION AND WHEN HAVING COUGHING FITS. MOIST HACKING COUGH PERSISTS SO MUCINEX AND PRN TESSALON WERE RX'D AND RECIEVED FOR SOME IMPROVEMENT. HE BEGAN SHIFT NSR ON TELEMETRY BUT DID HAVE A 6 BEAT RUN OF V.TACH FOLLOWED BY APPROX 6 SETS TRIGEMINY. PT WAS ASYMPTOMATIC OF CARDIAC DISTRESS BUT DID APPEAR TO HAVE BEEN COUGHING DURING ARRYTHMIA. HE'S NOW S.OLIVIA W/OCC PVC'S AND RX'D MAG LEVEL IN ADDITION TO RENAL PANEL THIS AM. NO ACUTE CHANGES, VSS/AFEBRILE. WCTM AND REPORT TO DAY RN.
[2022-04-29 05:54] LABS: Hematocrit 42.1 % (37.0-53.0); Hemoglobin 13.2 g/dL (13.5-17.5); Mean Corpuscular HGB 28.6 pg (26.0-34.0); Mean Corpuscular HGB Conc 31.4 g/dL (31.5-36.5); Mean Corpuscular Volume 91 fL (80-100); Mean Platelet Volume 11.6 fL (9.1-12.4); Platelet Count 203 K/mm3 (150-400); RDW Coefficient Variation 14.5 % (11.7-14.2); RDW Standard Deviation 48.2 fL (35.1-46.3); Red Blood Cell Count 4.62 M/mm3 (4.30-5.90); White Blood Cell Count 17.34 K/mm3 (4.00-11.30)
[2022-04-29 06:22] LABS: Albumin, Blood 2.7 g/dL (3.4-5.0); Anion Gap 5 mmol/L (6-16); Blood Urea Nitrogen 22 mg/dL (8-24); Bun/Creatinine Ratio 33.5 (12.0-20.0); CO2, Blood 33 mmol/L (21-32); Calcium, Blood 8.9 mg/dL (8.5-10.1); Chloride, Blood 101 mmol/L (98-108); Creatinine, Blood 0.66 mg/dL (0.60-1.20); Glomerular Filtration Rate 105 (60-); Glucose, Blood 129 mg/dL (70-99); Magnesium, Blood 2.1 mg/dL (1.6-2.4); Phosphorus, Blood 2.6 mg/dL (2.5-4.9); Potassium, Blood 4.1 mmol/L (3.5-5.5); Sodium, Blood 139 mmol/L (136-145)
--- NOTE | 2022-04-29 17:07 | NUR ---
SHIFT SUMMARY NO ACUTE CHANGES DURING SHIFT. PT ALERT AND ORIENTED. PT REMAINS ON 4L NC. ANTIBIOTICS TRANSITIONED TO PO. PT STATES COUGH IMPROVING. ECHO COMPLETED, PENDING RESULTS. WILL CONTINUE TO MONITOR. CALL LIGHT JAGDISH REACH
--- NOTE | 2022-04-29 19:10 | NUR ---
RECEIVED REPORT FROM CELENA BRENNAN. WILL PROVIDE CARE T/O SHIFT.
--- NOTE | 2022-04-29 19:43 | NUR ---
NO NEEDS AT THIS TIME. RESP EVEN. ON TELE. SINUS OLIVIA AT 60. CALL LT IN REACH.
--- NOTE | 2022-04-29 20:33 | NUR ---
PLEASANT AND COOPERATIVE WITH CARE. PRODUCTIVE COUGH STIMULATED BY TALKING AND MOVEMENT. THICK, PALE, YELLOW SPUTUM. CURRENTLY ON 4L VIA NC. HR 76 ON TELE. MOVING INDEP IN RM AND TO THE BATHROOM. VOIDING WELL AFTER RECEIVING LASIX DURING DAYSHIFT. TESSALON 100MG CAPSULE GIVEN FOR COUGH. TOOK MEDS WITHOUT DIFFICULTY. ON CONT BIOX 96%. NO OTHER NEEDS AT THIS TIME. CALL LT IN REACH.
--- NOTE | 2022-04-29 22:22 | NUR ---
PT RESTING COMFORTABLY WITH BIPAP, 5L BLEED IN, SATS ON CONT BIOX 96%. CALL LT IN REACH.
--- NOTE | 2022-04-29 23:30 | NUR ---
PT RESTING COMFORTABLY. 97% CONT BIOX. BIPAP WITH 5L BLEED IN. CALL LT IN REACH.
--- NOTE | 2022-04-30 02:49 | NUR ---
PT RESTING QUIETLY. 95% ON BIPAP. CALL LT IN REACH.
--- NOTE | 2022-04-30 04:41 | NUR ---
SHIFT SUMMARY: A/O. KNOWS LIMITATIONS. ON 4L VIA NC WHILE AWAKE WITH SATS OF 95% ON CONT BIOX. 5L BLEED IN PER BIPAP WITH SATS OF 97%. TESSALON GIVEN X 1. CONTINUES TO HAVE A MODERATE PROD COUGH OF THICK, PALE, YELLOW SPUTUM. SINUS OLIVIA PER TELE IN MID 50'S. NO COMPLAINTS OF CHEST PAIN. PT FEELS LIKE THE SWELLING IN HIS LEGS AND FEET HAVE GONE DOWN. VOIDING WELL. NO ACUTE CHANGES. WILL CONTINUE TO PROVIDE CARE UNTIL SHIFT REPORT.
[2022-04-30 06:36] LABS: Albumin, Blood 2.6 g/dL (3.4-5.0); Anion Gap 6 mmol/L (6-16); Blood Urea Nitrogen 26 mg/dL (8-24); Bun/Creatinine Ratio 32.8 (12.0-20.0); CO2, Blood 35 mmol/L (21-32); Calcium, Blood 8.5 mg/dL (8.5-10.1); Chloride, Blood 100 mmol/L (98-108); Creatinine, Blood 0.79 mg/dL (0.60-1.20); Glomerular Filtration Rate 100 (60-); Glucose, Blood 122 mg/dL (70-99); Phosphorus, Blood 3.8 mg/dL (2.5-4.9); Potassium, Blood 3.9 mmol/L (3.5-5.5); Sodium, Blood 141 mmol/L (136-145)
--- NOTE | 2022-04-30 17:38 | NUR ---
SHIFT SUMMARY PT TITRATED TO 2L O2 VIA NC DURING THIS SHIFT. PT TOLERATING THIS WELL AT 94% O2. PT ABMULATING WELL IN ROOM WITHOUT ASSISTANCE. PRN COUGH MEDICATION GIVEN ONCE THIS SHIFT. REMDESIVER GIVEN. PT UPDATED ON PT CONDITION. NO OTHER ACUTE CHANGES IN ASSESSMENT AT THIS TIME. VS REVIEWED. PT DANGLING ON SIDE OF BED. CALL LIGHT IN REACH. DENIES OTHER NEEDS AT THIS TIME.
--- NOTE | 2022-05-01 04:06 | NUR ---
BODY WORKER SUMMARY A&Ox4. PLEASANT AND COOPERATIVE WITH CARE. OCCASIONAL COUGH RELIEVED WITH ROUTINE GUIFINESSIN AND PRN TESSALON. TELE SINUS @56bpm. COMPLIANT WITH BiPAP AND Bi-Ox THIS EVENING. DECREASED SWELLING IN BLEs W/ COMPRESSION STOCKINGS, REMOVED AT BEDTIME. NO C/O PAIN OR DISCOMFORT THIS EVENING. INDEPENDENT W/I ROOM AND USING BEDSIDE URINAL FOR VOIDING. WILL REPORT TO ONCOMING RN.
[2022-05-01 05:27] LABS: Hematocrit 43.1 % (37.0-53.0); Hemoglobin 14.1 g/dL (13.5-17.5); Mean Corpuscular HGB 29.4 pg (26.0-34.0); Mean Corpuscular HGB Conc 32.7 g/dL (31.5-36.5); Mean Corpuscular Volume 90 fL (80-100); Mean Platelet Volume 11.5 fL (9.1-12.4); Platelet Count 200 K/mm3 (150-400); RDW Coefficient Variation 14.6 % (11.7-14.2); RDW Standard Deviation 48.7 fL (35.1-46.3); White Blood Cell Count 12.08 K/mm3 (4.00-11.30)
[2022-05-01 05:46] LABS: Albumin, Blood 2.8 g/dL (3.4-5.0); Anion Gap 4 mmol/L (6-16); Blood Urea Nitrogen 27 mg/dL (8-24); Bun/Creatinine Ratio 34.7 (12.0-20.0); CO2, Blood 37 mmol/L (21-32); Calcium, Blood 8.8 mg/dL (8.5-10.1); Chloride, Blood 98 mmol/L (98-108); Creatinine, Blood 0.78 mg/dL (0.60-1.20); Glomerular Filtration Rate 100 (60-); Glucose, Blood 129 mg/dL (70-99); Phosphorus, Blood 3.9 mg/dL (2.5-4.9); Potassium, Blood 4.2 mmol/L (3.5-5.5); Sodium, Blood 139 mmol/L (136-145)
--- NOTE | 2022-05-01 06:50 | NUR ---
CALL FROM PAPER CUTTER: PT HAD STENT OF ACCEERATED IDIOVENTRICULAR RHYTHM AT 0532. GIVEN LOVENOX INJECTION SHORTLY AFTERWARDS AND PT NOTED TO BE ASYMPTOMATIC. NO C/O CP, FATIGUE OR ALOC.
--- NOTE | 2022-05-01 18:45 | NUR ---
SHIFT SUMMARY PT HAS BEEN INDEPENDENT IN ROOM. RECIEVED HIS REMDESIVIR, SOME HARSH COUGHING WITH THICK YELLOWISH SPUTUM PRODUCTION. BED IN LOWEST POSITION AND CALL LIGHT IN REACH
--- NOTE | 2022-05-02 04:25 | NUR ---
SHIFT SUMMARY 61 YR M ADMITTED ON 04/27/22 FOR COPD EXACERBATION. COVID POSITIVE. FULL CODE. NO ACUTE CHANGES THIS SHIFT. PT WORE HIS CPAP OVERNIGHT BUY STILL OLIVIA'D DOWN TO THE 50'S. HE WAS ASYMPTOMATIC. EARLY IN THE SHIFT HE HAD A COUPLE OF SHORT COUGHING "FITS" AND ULTIMATELY COUGHED UP THICK, YELLOW SPUTUM. ONCE HIS CPAP WAS ON HE DID NOT COUGH ANYMORE.
--- NOTE | 2022-05-02 05:16 | NUR ---
NURSE NOTE. PER PACKING AND SHIPPING CLERK, PT HAD A VERY BRIEF JUNCTIONAL RYJERADM W/ BBB @ 0696.
[2022-05-02 05:39] LABS: Albumin, Blood 2.9 g/dL (3.4-5.0); Anion Gap 4 mmol/L (6-16); Blood Urea Nitrogen 23 mg/dL (8-24); CO2, Blood 36 mmol/L (21-32); Calcium, Blood 8.3 mg/dL (8.5-10.1); Chloride, Blood 97 mmol/L (98-108); Creatinine, Blood 0.74 mg/dL (0.60-1.20); Glomerular Filtration Rate 102 (60-); Glucose, Blood 127 mg/dL (70-99); Phosphorus, Blood 3.4 mg/dL (2.5-4.9); Potassium, Blood 4.1 mmol/L (3.5-5.5); Sodium, Blood 137 mmol/L (136-145)
[2022-05-02] MEDS ORDERED: BENZ100A PO (15:02)
[2022-05-02] MEDS ORDERED: GUAI600T33 PO (15:03)
[2022-05-02] MEDS ORDERED: FURO40 PO (15:04)
[2022-05-02] MEDS ORDERED: DECADRON4 M1 PO (15:04)
[2022-05-02] MEDS ORDERED: POLYETHYLENE G500 G1 PO (15:06)
[2022-05-02] MEDS ORDERED: POTA10T PO (15:06)
== END 2022-05-02 16:36 | disposition home health service (06) | DRG 177 ==
LOC: ER 09:40 → MEDS 14:51
PROVIDERS: Emergency Medicine; Internal Medicine; ADMIT Internal Medicine
PROC: 3E0333Z Introduction of Anti-inflammatory into Peripheral Vein, Percutaneous Approach (ICD-10-PCS; principal; 2022-04-27)
PROC: XW033H6 Introduction of Other New Technology Monoclonal Antibody into Peripheral Vein, Percutaneous Approach, New Technology Group 6 (ICD-10-PCS; 2022-04-27)
PROC: 8E0ZXY6 Isolation (ICD-10-PCS; 2022-04-27)
PROC: XW033E5 Introduction of Remdesivir Anti-infective into Peripheral Vein, Percutaneous Approach, New Technology Group 5 (ICD-10-PCS; 2022-04-28)
DX: U07.1 COVID-19 (principal); I50.41 Acute combined systolic (congestive) and diastolic (congestive) heart failure; J12.82 Pneumonia due to coronavirus disease 2019; J96.01 Acute respiratory failure with hypoxia; J44.1 Chronic obstructive pulmonary disease with (acute) exacerbation; F43.10 Post-traumatic stress disorder, unspecified; F31.9 Bipolar disorder, unspecified; D72.829 Elevated white blood cell count, unspecified; F17.200 Nicotine dependence, unspecified, uncomplicated; E88.09 Other disorders of plasma-protein metabolism, not elsewhere classified; T38.0X5A Adverse effect of glucocorticoids and synthetic analogues, initial encounter; E03.9 Hypothyroidism, unspecified; I48.0 Paroxysmal atrial fibrillation; Z88.5 Allergy status to narcotic agent; Z88.8 Allergy status to other drugs, medicaments and biological substances; Z79.899 Other long term (current) drug therapy; Z88.6 Allergy status to analgesic agent; Z87.820 Personal history of traumatic brain injury; Z90.49 Acquired absence of other specified parts of digestive tract; Z98.890 Other specified postprocedural states; Z99.81 Dependence on supplemental oxygen
CPT/HCPCS: 36415; 36600; 71045; 71260; 80053; 80069; 82803; 83735; 83880; 84145; 84484; 85025; 85027; 85379; 93005; 93010; 93306; 93970; 94640; 94644; 94645; 94660; 94664; 94760; 94761; 94762; 96365; 96366; 96375; 99285-25; A9270; J0248; J0456; J1100; J1650; J1940; J2930; J7050; M0222; Q9967

== ENCOUNTER 2025-01-30 01:28 | Emergency (ER) | payer MEDICARE, OTHER ==
[~2025-01-30] VITALS: Ht 182.9 cm; Wt 122.5 kg
[~2025-01-30 01:28] MED LIST changes: +ANORO ELLIPTA1 EACH INH; +ATOR40TA PO; +Aspir 8181 MG PO; +BENZ100A PO; +DECADRON4 M1 PO; +DIVA500EC PO; +FOLI1 PO; +GUAI600T33 PO; +JARDIANCE10 MG PO; -LEVSOD100 PO; +LEVSOD75 PO; +METR59TL; +MOME.1TO; +NUEDEXTA; +OMEP20ER PO; +POLYETHYLENE G500 G1 PO; +POTA10T PO; +PROP160ER PO; +SENN187 PO; +VITAMIN D5000 UNIT PO; -Vitamin D1000 UNI1 PO
[2025-01-30 01:54] LABS: BASOPHILS ABSOLUTE AUTO 0.08 K/mm3 (0.00-0.23); BASOPHILS PERCENT AUTO 1 % (0-2); EOSINOPHILS ABSOLUTE AUTO 0.33 K/mm3 (0.00-0.68); EOSINOPHILS PERCENT AUTO 3 % (0-6); Hematocrit 45.5 % (37.0-53.0); Hemoglobin 15.1 g/dL (13.5-17.5); IMMATURE GRAN ABSOLUTE AUTO 0.02 K/mm3 (0.00-0.10); IMMATURE GRAN PERCENT AUTO 0 % (0-1); LYMPHOCYTES ABSOLUTE AUTO 4.75 K/mm3 (0.84-5.20); LYMPHOCYTES PERCENT AUTO 48 % (21-46); MONOCYTES ABSOLUTE AUTO 1.04 K/mm3 (0.16-1.47); MONOCYTES PERCENT AUTO 10 % (4-13); Mean Corpuscular HGB 29.2 pg (26.0-34.0); Mean Corpuscular HGB Conc 33.2 g/dL (31.5-36.5); Mean Corpuscular Volume 88 fL (80-100); Mean Platelet Volume 10.6 fL (9.1-12.4); NEUTROPHILS ABSOLUTE AUTO 3.79 K/mm3 (1.96-9.15); NEUTROPHILS PERCENT AUTO 38 % (41-73); Platelet Count 240 K/mm3 (150-400); Red Blood Cell Count 5.17 M/mm3 (4.30-5.90); White Blood Cell Count 10.01 K/mm3 (4.00-11.30)
[2025-01-30 02:11] LABS: Albumin, Blood 3.7 g/dL (3.4-5.0); Bilirubin, Total 0.2 mg/dL (0.1-1.0); Bun/Creatinine Ratio 12.6 (12.0-20.0); Calcium, Blood 9.2 mg/dL (8.5-10.1); Creatinine, Blood 0.95 mg/dL (0.60-1.20); Globulin, Blood 3.7 g/dL (2.2-4.0); Potassium, Blood 4.3 mmol/L (3.5-5.5); Total Protein, Blood 7.4 g/dL (6.4-8.2)
[2025-01-30 06:34] VITALS: BP 114/83
== END 2025-01-30 06:55 | disposition home or self-care (01) ==
LOC: ER 01:28
PROVIDERS: Emergency Medicine
DX: I20.0 Unstable angina (principal); R74.8 Abnormal levels of other serum enzymes; I48.91 Unspecified atrial fibrillation; J44.9 Chronic obstructive pulmonary disease, unspecified; F31.9 Bipolar disorder, unspecified; F17.210 Nicotine dependence, cigarettes, uncomplicated; Z99.81 Dependence on supplemental oxygen; Z88.5 Allergy status to narcotic agent; Z88.8 Allergy status to other drugs, medicaments and biological substances; Z79.899 Other long term (current) drug therapy; Z79.82 Long term (current) use of aspirin; Z79.890 Hormone replacement therapy
CPT/HCPCS: 71046; 71275; 80053; 84484; 85025; 93005; 93010; 99285-25; Q9967

== ENCOUNTER 2025-03-08 08:28 | Day surgery (SDC) | payer MEDICARE, BC ==
[~2025-03-08] VITALS: Ht 182.9 cm; Wt 121.9 kg
[2025-03-08] VITALS (8 sets, daily range): BP systolic 136–146; BP diastolic 72–90
[~2025-03-08 08:28] MED LIST changes: +ALBU90OI INH; -ALBU90OI6 INH; +ARNUITY ELLIP100 MCG INH; +Amlodipine Bes2.5 MG PO; +DONE5 PO; +EUTHYROX50 MCG PO; +FAMO20 PO; -LEVSOD75 PO; -METR59TL; +METR59TL TOP; -MOME.1TO; +MOME.1TO TOP; +PROP120ER PO; -PROP160ER PO
[2025-03-08] MEDS ORDERED: CeFAZolin Sodium 2,000 MG in NS 100 ML IV SCH (08:50)
[2025-03-08] MEDS ORDERED: CeFAZolin Sodium 3,000 MG in NS 100 ML IV SCH (09:35)
[2025-03-08] MEDS ORDERED: Bupivacaine 0.5% HCl 5 MG/ML 30MLVIAL ONE (10:26)
[2025-03-08] MEDS ORDERED: Dexamethasone Sod Phos 10 MG/ML 1ML VIAL ONE (10:38)
[2025-03-08] MEDS ORDERED: FentaNYL Citrate 50 MCG/ML 2 ML Injection ONE (10:38)
[2025-03-08] MEDS ORDERED: Rocuronium Bromide 10 MG/ML 5ML Injection IV ONE (10:38)
[2025-03-08] MEDS ORDERED: Sugammadex Sodium 200 MG/2ML SDV (100 MG/ML) ONE (10:39)
[2025-03-08] MEDS ORDERED: Ketorolac Tromethamine 30mg Vial ONE (10:39)
[2025-03-08] MEDS ORDERED: Ondansetron HCl 2 MG / ML 2ML Vial ONE (10:39)
--- NOTE | 2025-03-08 10:46 | NUR ---
History, Chart, Medications and Allergies reviewed before start of procedure. Pre-Op teaching done. Pt verbalizes understanding. Patient confirms NPO status and agrees with scheduled surgery. Patient reports completing Chlorhexadine shower X2 prior to admission to hospital. Surgical site prepped with 2% Chlorhexidine cloth wipe. Patient States Post-Procedure ride home has been arranged.
[2025-03-08] MEDS ORDERED: Labetalol HCL 5 MG/ML 4ML Injection (Single Dose) IV PRN (11:20)
[2025-03-08] MEDS ORDERED: FentaNYL Citrate 50 MCG/ML 2 ML Injection IV PRN ×2 (11:20→11:25)
[2025-03-08] MEDS ORDERED: Ondansetron HCl 2 MG / ML 2ML Vial IV PRN (11:20)
[2025-03-08] MEDS ORDERED: HYDROmorphone HCl/Pf 1MG SYR IV PRN ×2 (11:20→11:25)
[2025-03-08] MEDS ORDERED: HYDROcodone 5-APAP 325 TAB PO PRN (12:00)
--- NOTE | 2025-03-08 12:56 | NUR ---
Discharge instructions reviewed with patient. Patient verbalizes understanding. Copy given to patient to take home. Patient States Post-Procedure ride home has been arranged. Discharged via wheelchair to private car for ride home.
== END 2025-03-08 12:57 | disposition home or self-care (01) ==
LOC: ORSCMMR 08:28 → ORD 10:15 → ORSCMMR 12:57
PROVIDERS: Surgery
PROC: 0WUF0JZ Supplement Abdominal Wall with Synthetic Substitute, Open Approach (ICD-10-PCS; principal; 2025-03-08 10:15)
DX: K42.0 Umbilical hernia with obstruction, without gangrene (principal); I10 Essential (primary) hypertension; J44.9 Chronic obstructive pulmonary disease, unspecified; G47.33 Obstructive sleep apnea (adult) (pediatric); I48.91 Unspecified atrial fibrillation; F43.10 Post-traumatic stress disorder, unspecified; F31.9 Bipolar disorder, unspecified; Z86.73 Personal history of transient ischemic attack (TIA), and cerebral infarction without residual deficits; F41.9 Anxiety disorder, unspecified; F17.210 Nicotine dependence, cigarettes, uncomplicated; E78.5 Hyperlipidemia, unspecified; Z79.899 Other long term (current) drug therapy
CPT/HCPCS: A9270; C1781; J0690; J1100; J1885; J2405; J2704; J3010; J7120